=== PATIENT | male | born 1940 | race Caucasian/White ===

== ENCOUNTER 2019-02-23 08:55 | Day surgery (SDC) | payer MEDICARE ==
[2019-02-22 10:12] VITALS: BMI 23.6
[~2019-02-23 08:55] MED LIST: LACTATED RINGERS 1,000 ML IV SCH
[2019-02-23] MEDS ORDERED: LIDOCAINE 1% 20 ML VIAL (10MG/ML) FOR IV START INTRADERMA ONE (09:07)
[2019-02-23 09:19] VITALS: RESP 16; TEMP 98
[2019-02-23] MEDS ORDERED: PROPOFOL 10 MG/ML 20 ML VIAL IV ONE (09:47)
[2019-02-23] MEDS ORDERED: LIDOCAINE 1% INJ 10MG/ML (20 ML MDV) ONE (09:47)
--- NOTE | 2019-02-23 10:14 | P.PCN ---
Date of Procedure: 02/23/19 Description of Procedure: BRIEF HISTORY: Patient is a 78-year-old pleasant male scheduled for an elective colonoscopy as a part of a history of colon polyps. Reports last colonoscopy 5 years ago and significant for polyps. PROCEDURE PERFORMED: Colonoscopy with polypectomy. PREOPERATIVE DIAGNOSIS: Personal history of colon polyps, last colonoscopy 5 years ago. ESTIMATED BLOOD LOSS: Minimal. IV sedation per Anesthesia. PROCEDURE: After informed consent was obtained, the patient, was brought into the endoscopy unit. IV sedation was administered by Anesthesia under continuous monitoring. Digital rectal examination was normal. Initially the Olympus CF-190 flexible video colonoscope was then inserted in the rectum, gradually advanced into the cecum without any difficulty. Careful examination was performed as the scope was gradually being withdrawn. Ileocecal valve and the appendiceal orifice were visualized and appeared normal. Prep was excellent. Mucosa of the cecum, ascending colon, transverse colon, descending colon, sigmoid colon, and rectum appeared normal. 2 diminutive polyps measuring 2 mm and sessile nature one in the ascending colon and one and descending colon were removed with cold forcep polypectomy. Multiple small and large diverticula in the left colon. Retroflexion was performed in the rectum and no lesions were seen. The patient tolerated the procedure well. IMPRESSION: Left colonic diverticulosis. 2 diminutive removed with cold forceps polypectomy from the ascending and descending colon. RECOMMENDATIONS: Findings of this examination were discussed with the patient and his . Okay to resume diet and medications. Would recommend fiber supplementation. Await pathology from polypectomies. Repeat colonoscopy in 5 years if patient is medically stable.
[2019-02-23 10:27] VITALS: BP 109/75; PULSE 64
== END 2019-02-23 10:59 | disposition home or self-care (01) ==
LOC: ORWHC2ENDO 08:55
PROVIDERS: ATTEND Internal Medicine
DX: Z12.11 Encounter for screening for malignant neoplasm of colon (principal); K63.5 Polyp of colon; K57.30 Diverticulosis of large intestine without perforation or abscess without bleeding; I10 Essential (primary) hypertension; Z86.010 Personal history of colon polyps; Z79.899 Other long term (current) drug therapy; Z98.890 Other specified postprocedural states; Z80.41 Family history of malignant neoplasm of ovary
CPT/HCPCS: 88305; 45380; J2001; J2704

== ENCOUNTER 2024-11-30 09:42 | Day surgery (SDC) | payer MEDICARE ==
[2024-11-29 13:43] VITALS: BMI 22.9
[2024-11-30] MEDS: IV FLUID CONTINUATION 1,000 ML IV ONE ×2 (10:45→11:53)
[2024-11-30] MEDS: LACTATED RINGERS 1,000 ML IV SCH (11:02)
[2024-11-30 11:04] VITALS: TEMP 97.5
[2024-11-30] MEDS ORDERED: PROPOFOL 10 MG/ML 20 ML VIAL IV ONE (11:54)
--- NOTE | 2024-11-30 12:10 | P.PCN ---
Date of Procedure: 11/30/24 Procedure(s) Performed: BRIEF HISTORY: Patient is a 84-year-old pleasant -[place] male scheduled for an elective colonoscopy as a part of screening for prior history of colon polyps and family history of colon cancer. His father was diagnosed with colon cancer at age 33. PROCEDURE PERFORMED: Colonoscopy. PREOPERATIVE DIAGNOSIS: Screening for history of colon polyps and family history of colon cancer. IV sedation per Anesthesia. PROCEDURE: After informed consent was obtained, the patient, was brought into the endoscopy unit. IV sedation was administered by Anesthesia under continuous monitoring. Digital rectal examination was normal. Initially the Olympus CF-160 flexible video colonoscope was then inserted in the rectum, gradually advanced into the cecum without any difficulty. Careful examination was performed as the scope was gradually being withdrawn. Ileocecal valve and the appendiceal orifice were visualized and appeared normal. Prep was excellent. Mucosa of the cecum, ascending colon, transverse colon, descending colon, sigmoid colon, and rectum appeared normal. Retroflexion was performed in the rectum and no lesions were seen. The patient tolerated the procedure well. IMPRESSION: Normal-appearing colon from rectum to cecum with no evidence of colorectal neoplasia Left-sided diverticulosis. RECOMMENDATIONS: Findings of this examination were discussed with the patient as well as his family. He was advised to be on a high-fiber diet and take fiber supplements on a regular basis..
[2024-11-30 12:16] VITALS: RESP 14
[2024-11-30 12:31] VITALS: PULSE 60
[2024-11-30 12:39] VITALS: BP 126/77
== END 2024-11-30 12:53 | disposition home or self-care (01) ==
LOC: ORWHC2ENDO 09:42
PROVIDERS: ATTEND Internal Medicine Gastroenterology
DX: Z12.11 Encounter for screening for malignant neoplasm of colon (principal); Z86.0100 Personal history of colon polyps, unspecified; Z80.0 Family history of malignant neoplasm of digestive organs; K57.30 Diverticulosis of large intestine without perforation or abscess without bleeding
CPT/HCPCS: 45378; J2704